=== PATIENT | male | born 1995 | race Two or more races ===

== ENCOUNTER → 2018-05-11 | Outpatient (CLI) | payer SELFPAY ==
--- NOTE | 2018-05-11 08:54 | RADIOLOGY IMAGING REPORT ---
FACILITY: [facility] PATIENT NAME: Boby Burr : 1995 MR: [id number] V: [id number] EXAM DATE: ORDERING PHYSICIAN: ARNOLD MCCLENDON TECHNOLOGIST: Location: [facility] Patient: Boby Burr : 1995 Visit/Account:[id number] Date of Sevice: 05/11/2018 Chest with lateral, 2 views. HISTORY: Positive TB test. COMPARISON: None. The heart and mediastinum are unremarkable. Pulmonary vessels are unremarkable. The lungs are clear . The pleural surfaces are unremarkable. No pneumothorax. No lung cavities. No acute bony abnormali ties. IMPRESSION: No evidence of acute cardiopulmonary disease. No evidence of tuberculosis. Report Dictated By: Srikanth Barriga MD at 05/11/2018 8:50 AM Report E-Signed By: Srikanth Barriga MD at 05/11/2018 8:51 AM [id number]
== END ==
LOC: RAD 08:14
PROVIDERS: ATTEND Pediatrics Adolescent Medicine
DX: R76.11 Nonspecific reaction to tuberculin skin test without active tuberculosis (principal)
CPT/HCPCS: 71046